=== PATIENT | male | born 1960 | race African-American/Black ===

== ENCOUNTER 2018-05-12 15:58 | Inpatient (IN) | payer OTHER ==
[2018-05-12 18:30] VITALS: BMI 21.7
--- NOTE | 2018-05-12 20:14 | HP ---
CIWA Score - CIWA Score Nausea/Vomitin-No Nausea/No Vomiting Muscle Tremors: 4-Moderate,w/Arms Extend Anxiety: 4-Mod. Anxious/Guarded Agitation: 4-Moderately Restless Paroxysmal Sweats: 3 Orientation: 0-Oriented Tacttile Disturbances: 0-None Auditory Disturbances: 0-None Visual Disturbances: 0-None Headache: 0-None Present CIWA-Ar Total Score: 15 Admission ROS BHS - HPI Chief Complaint: SEEKING DETOX FOR ALCOHOLISM W/ C/O WITHDRAWAL SX'S. CIWA 15 Allergies/Adverse Reactions: Allergies Allergy/AdvReac Type Severity Reaction Status Date / Time Penicillins Allergy Verified 05/12/18 19:46 History of Present Illness: 57 Y.O. MALE WITH LONG HX/O OF ALCOHOL DEPENDENCE HERE FOR DETOX. CLIENT IS SELF REFERRED. FIRST ADMISSION HERE. THIS IS HIS FIRST TIME IN INPATIENT TXMENT. DENIES ANY SIGNIFICANT PERIOD OF CLEAN TIME. C/O WITHDRAWAL SX'S CIWA 15. DENIES HX/O SEIZURES, AVH, PAST/PRESENT SI/HI. DENIES LEGALS PMHX- HTN, PSYCH- DENIES Exam Limitations: No Limitations - Ebola screening Have you traveled outside of the country in the last 21 days: No Have you had contact with anyone from an Ebola affected area: No Have you been sick,other than usual withdrawal symptoms: No - Review of Systems Constitutional: Loss of Appetite, Malaise EENT: reports: Other (COREECTIVE LENSES) Respiratory: reports: No Symptoms reported Cardiac: reports: No Symptoms Reported GI: reports: Poor Appetite : reports: No Symptoms Reported Musculoskeletal: reports: No Symptoms Reported Integumentary: reports: No Symptoms Reported Neuro: reports: Tremors Endocrine: reports: No Symptoms Reported Hematology: reports: No Symptoms Reported Psychiatric: reports: Depressed Other Systems: Reviewed and Negative Patient History - Patient Medical History Hx Anemia: No Hx Asthma: No Hx Chronic Obstructive Pulmonary Disease (COPD): No Hx Cancer: No Hx Cardiac Disorders: No Hx Congestive Heart Failure: No Hx Hypertension: Yes Hx Hypercholesterolemia: No Hx Pacemaker: No HX Cerebrovascular Accident: No Hx Seizures: No Hx Dementia: No Hx Diabetes: No Hx Gastrointestinal Disorders: No Hx Liver Disease: No Hx Genitourinary Disorders: No Hx Sexually Transmitted Disorders: No Hx Renal Disease (ESRD): No Hx Thyroid Disease: No Hx Human Immunodeficiency Virus (HIV): No Hx Hepatitis C: No Hx Depression: No Hx Suicide Attempt: No Hx Bipolar Disorder: No Hx Schizophrenia: No Other Medical History: FEELS DEPRESSED - Patient Surgical History Past Surgical History: No Anesthesia Reaction: No - PPD History Previous Implant?: No Documented Results: Positive w/o proof Implanted On Prior [facility] Admission?: No PPD to be Administered?: No - Smoking Cessation Smoking history: Current every day smoker Have you smoked in the past 12 months: Yes Aproximately how many cigarettes per day: 4 Cigars Per Day: 0 Hx Chewing Tobacco Use: No Initiated information on smoking cessation: Yes 'Breaking Loose' booklet given: 05/12/18 - Substance & Tx. History Hx Alcohol Use: Yes Hx Substance Use: Yes Substance Use Type: Alcohol, Cocaine, Marijuana Hx Substance Use Treatment: Yes (AA/[facility] MEETINGS) - Substances Abused Alcohol Route: Oral Frequency: 3-6 times per week Amount used: 6 PACK BEER Age of first use: 17 Date of Last Use: 05/12/18 Cocaine Route: Smoking Frequency: Daily Amount used: 2 BAGS Age of first use: 22 Date of Last Use: 05/12/18 THC Route: Inhalation Frequency: Daily Amount used: $20 Age of first use: 17 Date of Last Use: 05/12/18 Family Disease History - Family Disease History Family Disease History: Other: Father (HTN) Admission Physical Exam S - Vital Signs Vital Signs: Vital Signs - 24 hr 05/12/18 18:28 Temperature 98 F Pulse Rate 79 Respiratory 18 Rate Blood Pressure 134/65 - Physical General Appearance: Yes: Appropriately Dressed, Tremorous (FELT), Anxious HEENTM: Yes: EOMI, Hearing grossly Normal, Normocephalic, Normal Voice, JACKIE, Pharynx Normal, Other (CORRECTIVE LENSES) Respiratory: Yes: Chest Non-Tender, Lungs Clear, Normal Breath Sounds, No Respiratory Distress, No Accessory Muscle Use Neck: Yes: No masses,lesions,Nodules, Supple, Trachea in good position Breast: Yes: Breast Exam Deferred Cardiology: Yes: Regular Rhythm, Regular Rate, S1, S2 Abdominal: Yes: Normal Bowel Sounds, Non Tender, Flat, Soft Genitourinary: Yes: Other (NO C/O) Back: Yes: Normal Inspection Musculoskeletal: Yes: full range of Motion, Gait Steady Extremities: Yes: Normal Range of Motion, Non-Tender, Tremors (FELT) Neurological: Yes: Fully Oriented, Alert, Motor Strength 5/5, Depressed Affect Integumentary: Yes: Dry, Warm Lymphatic: Yes: Within Normal Limits - Diagnostic (1) Alcohol dependence with uncomplicated withdrawal Current Visit: Yes Status: Acute (2) Cocaine abuse, uncomplicated Current Visit: Yes Status: Acute (3) Cannabis abuse, uncomplicated Current Visit: Yes Status: Acute (4) Nicotine dependence Current Visit: Yes Status: Chronic Qualifiers: Nicotine product type: cigarettes Substance use status: uncomplicated Qualified Code(s): F17.210 - Nicotine dependence, cigarettes, uncomplicated (5) HTN (hypertension) Current Visit: Yes Status: Chronic Qualifiers: Hypertension type: essential hypertension Qualified Code(s): I10 - Essential (primary) hypertension (6) GERD (gastroesophageal reflux disease) Current Visit: Yes Status: Chronic Qualifiers: Esophagitis presence: without esophagitis Qualified Code(s): K21.9 - Gastro -esophageal reflux disease without esophagitis Cleared for Admission [facility] - Detox or Rehab [facility] Level of Care: Medically Managed Detox Regimen/Protocol: Librium Claeared for Rehab Admission: No S Breath Alcohol Content Breath Alcohol Content: 0 Urine Drug Screen - Results Drug Screen Negative: No Urine Drug Screen Results: THC-Marijuana, ADELIA-Cocaine
[2018-05-12] MEDS ORDERED: hydrOXYzine PAMOATE 50 MG CAPSULE (FP) PO PRN (20:18)
[2018-05-12] MEDS ORDERED: LOPERAMIDE HCL 2 MG CAPSULE PO PRN (20:18)
[2018-05-12] MEDS ORDERED: IBUPROFEN 400 MG TABLET (FP) PO PRN (20:18)
[2018-05-12] MEDS ORDERED: P-EPHED 60MG/TRIPROLIDI 2.5MG TABLET PO PRN (20:18)
[2018-05-12] MEDS ORDERED: MAG HYDROX/AL HYDROX/SIMETH 30 ML UNIT-DOSE CUP PO PRN (20:18)
[2018-05-12] MEDS ORDERED: NICOTINE POLACRILEX 2 MG GUM BUC PRN (20:18)
[2018-05-12] MEDS ORDERED: chlordiazePOXIDE HCL 25 MG CAPSULE PO PRN (20:18)
[2018-05-12] MEDS ORDERED: MENTHOL/PHENOL 1 EACH UD MM PRN (20:18)
[2018-05-12] MEDS ORDERED: MAGNESIUM HYDROX 2400MG/30ML ORAL SUSPENSION 30 ML CUP PO PRN (20:18)
[2018-05-12] MEDS ORDERED: MAGNESIUM CITRATE 300 ML BOTTLE PO PRN (20:18)
[2018-05-12] MEDS ORDERED: guaiFENesin/D-METHORPHAN HB 10 ML UNIT-DOSE CUPS PO PRN (20:18)
[2018-05-12] MEDS ORDERED: ACETAMINOPHEN 325 MG TABLET (FP) PO PRN (20:18)
[2018-05-12] MEDS ORDERED: MELATONIN 5 MG TABLETS PO PRN (22:00)
[2018-05-13] MEDS: THIAMINE HCL 100 MG TABLET (FP) PO SCH ×2 (00:55→22:18)
[2018-05-13] MEDS: chlordiazePOXIDE HCL 25 MG CAPSULE PO SCH ×5 (03:58→22:18)
[2018-05-13 10:21] LABS: HEMATOCRIT 40.5 % (35.4-49); HEMOGLOBIN 13.3 GM/dL (11.7-16.9); MCH 31.5 pg (25.7-33.7); MEAN CELL VOLUME 95.7 fl (80-96); MEAN PLT VOLUME 7.5 fl (7.5-11.1); PLATELET COUNT 242 K/MM3 (134-434); RBC 4.23 M/mm3 (4.00-5.60); RDW 14.5 % (11.9-15.9); WHITE BLOOD COUNT 4.8 K/mm3 (4.0-10.0)
[2018-05-13 10:33] LABS: CHLORIDE 107 mmol/L (98-107); POTASSIUM 4.6 mmol/L (3.5-5.1); SODIUM 142 mmol/L (136-145)
--- NOTE | 2018-05-13 10:35 | PN ---
S CIWA - CIWA Score Nausea/Vomitin-Mild Nausea/No Vomiting Muscle Tremors: 1-None Visible, but [place] Anxiety: 1-Mildly Anxious Agitation: 1-Slight > Activity Paroxysmal Sweats: No Perspiration Orientation: 0-Oriented Tacttile Disturbances: 0-None Auditory Disturbances: 0-None Visual Disturbances: 0-None Headache: 2-Mild CIWA-Ar Total Score: 6 BHS Progress Note (SOAP) Subjective: PATIENT PRESENTS WITH ANXIETY, CHILLS, HEADACHE AND MILD NAUSEA. Objective: 05/13/18 10:33 Laboratory Tests 05/13/18 07:50 WBC 4.8 RBC 4.23 Hgb 13.3 Hct 40.5 MCV 95.7 MCH 31.5 MCHC 33.0 RDW 14.5 Plt Count 242 MPV 7.5 Vital Signs Temperature 97.4 F L 05/13/18 09:25 Pulse Rate 56 L 05/13/18 09:25 Respiratory Rate 18 05/13/18 09:25 Blood Pressure 121/74 05/13/18 09:25 O2 Sat by Pulse Oximetry (%) OBJ: SKIN WARM AND MOIST NEURO ALERT AND ORIENTED, NEURO CN 1-X11 GROSSLY INTACT CAR: S1S2 RESP: CTA BL CAR S1S2 Assessment: 05/13/18 10:34 WITHDRAWAL SYNDROME Plan: ENCOURAGE ORAL FLUIDS CONTINUE DETOX PER PROTOCOL
[2018-05-13] MEDS: RANITIDINE HCL 150 MG TABLET (FP) PO SCH (10:39)
[2018-05-13] MEDS: PRENATAL VITAMINS W/ FOLIC ACID TABLET (FP) PO SCH (10:39)
[2018-05-13] MEDS: hydrALAZINE HCL 10 MG TABLET PO SCH (10:40)
[2018-05-13] MEDS: NICOTINE 14 MG/24 HOURS TOPICAL PATCH TD SCH (10:41)
[2018-05-13 11:11] LABS: ALBUMIN 3.3 g/dl (3.4-5.0); ALK PHOS 76 U/L (45-117); ANION GAP 8 MMOL/L (8-16); BILIRUBIN,TOTAL 0.7 mg/dL (0.2-1); BLOOD UREA NITROGEN 16 mg/dL (7-18); CALCIUM 8.4 mg/dL (8.5-10.1); CO2 27 mmol/L (21-32); CREATININE 0.7 mg/dL (0.55-1.3); GLUCOSE,RANDOM 92 mg/dL (74-106); SGOT/AST 33 U/L (15-37); SGPT/ALT 31 U/L (13-61); TOT PROT 6.5 g/dl (6.4-8.2)
[2018-05-13 11:48] LABS: RPR REACTIVE 1:1 (NONREACTIVE)
--- NOTE | 2018-05-13 13:33 | CONSULT ---
[facility] Psychiatric Consult - Data Date of interview: 05/13/18 Admission source: [facility] Identifying data: First admission to [facility] for this 57 y/o AA male self- referred for detoxification treatment (alcohol,cannabis,cocaine).Admitted to [address] [place] [address].Patient is single without dependents,domiciled and employed. Substance Abuse History: Confirmed by the patient in my interview.Details in current [facility] report : Smoking history: Current every day smoker. Have you smoked in the past 12 months: Yes. Aproximately how many cigarettes per day: 4. Cigars Per Day: 0. Hx Chewing Tobacco Use: No. Initiated information on smoking cessation: Yes. 'Breaking Loose' booklet given: 05/12/18. - Substance & Tx. History. Hx Alcohol Use: Yes. Hx Substance Use: Yes. Substance Use Type : Alcohol, Cocaine, Marijuana. Hx Substance Use Treatment: Yes (AA/ MEETINGS) . - Substances Abused. Alcohol. Route: Oral. Frequency: 3-6 times per week. Amount used: 6 PACK BEER. Age of first use: 17. Date of Last Use: 05/12. Cocaine. Route: Smoking. Frequency: Daily. Amount used: 2 BAGS. Age of first use: 22. Date of Last Use: 05/12/18. THC. Route: Inhalation. Frequency: Daily. Amount used: $20. Age of first use: 17. Date of Last Use : 05/12/18 Medical History: Borderline hypertension and arthritis (right knee). Psychiatric History: Patient denies. Physical/Sexual Abuse/Trauma History: Patient denies. Additional Comment: Urine Drug Screen Results: THC-Marijuana, ADELIA-Cocaine.Noted. Mental Status Exam - Mental Status Exam Alert and Oriented to: Time, Place, Person Cognitive Function: Good Patient Appearance: Well Groomed Mood: Withdrawn, Hopeful Affect: Appropriate, Normal Range Patient Behavior: Fatigued, Appropriate, Cooperative Speech Pattern: Clear Voice Loudness: Normal Thought Process: Intact, Goal Oriented Thought Disorder: Not Present Hallucinations: Denies Suicidal Ideation: Denies Homicidal Ideation: Denies Insight/Judgement: Poor Sleep: Well Appetite: Good Muscle strength/Tone: Normal Gait/Station: Normal Psychiatric Findings - Problem List ([place] 1, 2,3) (1) Alcohol dependence with uncomplicated withdrawal Current Visit: Yes Status: Acute (2) Cocaine dependence Current Visit: Yes Status: Acute (3) Marihuana dependence Current Visit: Yes Status: Acute (4) Nicotine dependence Current Visit: Yes Status: Chronic Qualifiers: Nicotine product type: cigarettes Substance use status: uncomplicated Qualified Code(s): F17.210 - Nicotine dependence, cigarettes, uncomplicated - Initial Treatment Plan Initial Treatment Plan: Psychoeducation.Sleep hygiene.Patient is encouraged to join group sessions and participate in unit activities.Discouraged to stay in bed all day.Detoxification in progress.Observation.
[2018-05-13 14:27] LABS: TREPONEMA ANTIBODY REACTIVE (NONREACTIVE)
--- NOTE | 2018-05-13 16:45 | EKG ---
Test Reason : Blood Pressure : / mmHG Vent. Rate : 050 BPM Atrial Rate : 050 BPM P-R Int : 176 ms QRS Dur : 098 ms QT Int : 462 ms P-R-T Axes : 083 072 034 degrees QTc Int : 421 ms SINUS BRADYCARDIA POSSIBLE LEFT ATRIAL ENLARGEMENT BORDERLINE ECG NO PREVIOUS ECGS AVAILABLE Confirmed by Coleman Moreno ([id number]) on 05/13/2018 4:45:00 PM Referred By: Confirmed By:Coleman Moreno
--- NOTE | 2018-05-13 18:14 | PN ---
[facility] Progress Note Note: Abnormal Lab Results 05/13/18 05/13/18 07:50 07:50 Calcium 8.4 L Albumin 3.3 L RPR Titer Reactive 1:1 H Labs reviewed. Patient states had syphilis years ago and was treated. No rashes. No treatment required.
[2018-05-13 19:10] LABS: URINE APPEARANCE CLEAR; URINE BILIRUBIN NEGATIVE (<2.0 mg/dL); URINE COLOR LTYELLOW; URINE GLUCOSE (UA) NEGATIVE (NEGATIVE); URINE KETONE NEGATIVE (NEGATIVE); URINE LEUK ESTERASE NEGATIVE (NEGATIVE); URINE NITRITE NEGATIVE (NEGATIVE); URINE PROTEIN NEGATIVE (NEGATIVE); URINE UROBILINOGEN NEGATIVE mg/dL (0.2-1.0)
[2018-05-14] MEDS: chlordiazePOXIDE HCL 25 MG CAPSULE PO SCH ×2 (05:32→10:17)
[2018-05-14] MEDS: RANITIDINE HCL 150 MG TABLET (FP) PO SCH (10:17)
[2018-05-14] MEDS: PRENATAL VITAMINS W/ FOLIC ACID TABLET (FP) PO SCH (10:17)
[2018-05-14] MEDS: NICOTINE 14 MG/24 HOURS TOPICAL PATCH TD SCH (10:18)
[2018-05-14] MEDS: hydrALAZINE HCL 10 MG TABLET PO SCH (10:18)
--- NOTE | 2018-05-14 11:30 | PN ---
S CIWA - CIWA Score Nausea/Vomitin-No Nausea/No Vomiting Muscle Tremors: None Anxiety: 0-No Anxiety, at Ease Agitation: 0-Normal Activity Paroxysmal Sweats: No Perspiration Orientation: 0-Oriented Tacttile Disturbances: 0-None Auditory Disturbances: 0-None Visual Disturbances: 0-None Headache: 0-None Present CIWA-Ar Total Score: 0 BHS Progress Note (SOAP) Subjective: Patient tolerating detox well. Denies medical complaints. Objective: 05/14/18 11:29 Vital Signs Temperature 98.5 F 05/14/18 09:19 Pulse Rate 62 05/14/18 09:19 Respiratory Rate 18 05/14/18 09:19 Blood Pressure 138/88 05/14/18 09:19 O2 Sat by Pulse Oximetry (%) Laboratory Tests 05/13/18 05/13/18 05/13/18 07:50 07:50 07:50 WBC 4.8 RBC 4.23 Hgb 13.3 Hct 40.5 MCV 95.7 MCH 31.5 MCHC 33.0 RDW 14.5 Plt Count 242 MPV 7.5 Sodium 142 Potassium 4.6 Chloride 107 Carbon Dioxide 27 Anion Gap 8 BUN 16 Creatinine 0.7 Creat Clearance w eGFR > 60 Random Glucose 92 Calcium 8.4 L Total Bilirubin 0.7 AST 33 ALT 31 Alkaline Phosphatase 76 Total Protein 6.5 Albumin 3.3 L Urine Color Urine Appearance Urine pH Ur Specific [place] Urine Protein Urine Glucose (UA) Urine Ketones Urine Blood Urine Nitrite Urine Bilirubin Urine Urobilinogen Ur Leukocyte Esterase RPR Titer Reactive 1:1 H T.pallidum Ab (MHA) Reactive 05/13/18 17:30 WBC RBC Hgb Hct MCV MCH MCHC RDW Plt Count MPV Sodium Potassium Chloride Carbon Dioxide Anion Gap BUN Creatinine Creat Clearance w eGFR Random Glucose Calcium Total Bilirubin AST ALT Alkaline Phosphatase Total Protein Albumin Urine Color Ltyellow Urine Appearance Clear Urine pH 7.0 Ur Specific [place] 1.018 Urine Protein Negative Urine Glucose (UA) Negative Urine Ketones Negative Urine Blood Negative Urine Nitrite Negative Urine Bilirubin Negative Urine Urobilinogen Negative Ur Leukocyte Esterase Negative RPR Titer T.pallidum Ab (MHA) PE: alert and oriented skin warm and dry car s1s2 resp cta bl Assessment: 05/14/18 11:30 Withdrawal syndrome Plan: Continue detox as per protocol encourage oral fluids
[2018-05-14 13:59] VITALS: BP 132/79; PULSE 65; TEMP 97.8
--- NOTE | 2018-05-14 15:19 | PN ---
[facility] Progress Note Note: NOTIFIED BY RN PATIENT REQUESTED TO SIGN OUT AMA. PATIENT EVALUATED TODAY AND MEDICALLY STABLE. NO SI/HI VOICED. ENCOURAGED TO COMPLETE DETOX BUT PATIENT PATIENT REFUSED. PATIENT REFUSED TO BE SEEN BY PROVIDER AT TIME OF AMA.
[2018-05-14] MEDS ORDERED: chlordiazePOXIDE 5 MG CAPSULE PO SCH (23:00)
[2018-05-15] MEDS ORDERED: chlordiazePOXIDE HCL 10 MG CAPSULE PO SCH (23:00)
== END 2018-05-14 15:29 | disposition left against medical advice (07) | DRG 770 ==
LOC: YASAS 15:58 → Y3N 20:39
PROC: HZ2ZZZZ Detoxification Services for Substance Abuse Treatment (ICD-10-PCS; principal; 2018-05-12)
DX: F10.230 Alcohol dependence with withdrawal, uncomplicated (principal); F14.20 Cocaine dependence, uncomplicated; F12.20 Cannabis dependence, uncomplicated; F17.210 Nicotine dependence, cigarettes, uncomplicated; I10 Essential (primary) hypertension; K21.9 Gastro-esophageal reflux disease without esophagitis; Z86.19 Personal history of other infectious and parasitic diseases; Z88.0 Allergy status to penicillin
CPT/HCPCS: 36415; 71046-TC-FY; 80053; 81003; 85027; 86593; 86780; 93005; 93010